=== PATIENT | male | born 1980 ===

== ENCOUNTER 2016-11-02 17:17 | Emergency (ER) | payer BC, OTHER ==
[2016-11-02 17:29] VITALS: BP 128/85
--- NOTE | 2016-11-02 18:03 | UC ---
Respiratory Complaint HPI - HPI Summary HPI Summary: The patient comes in today for: 1. Lung congestion: Onset: 11 days ago. Palliative/provocative: Nothing makes the cough better or worse except possibly cough medication. Quality: [place]: Lungs Severity: chest pain along the upper lateral right chest "where I broke a rib before." Time: cough lasts a few seconds. Associated symptoms: Previous treatment: He went to [facility] who diagnosed as having an upper respiratory infection and a viral "stomach bug." And he was given zithromax, and a "little white pill that dissolved in the mouth for nausea, and cough syrup with codiene. These helped, but he states that the lungs are still congested. The cough has continued. He has not had any continuing fevers. He got a nebulizer in the ER and it did help. But, he did not get an inhaler on discharge. Wheezing: "a little bit." Previous disease: No history of asthma. He has not used inhalers before. Dyspnea: "This cold has me huffing and puffing." Fatigue: "I feel tired." Rhinitis: Present, yellow. Cough: white, chunky by his description. * - History of Current Complaint Chief Complaint: UCGeneralIllness Stated Complaint: UPPER RESPIRATORY COMPLAINT Time Seen by Provider: 11/02/16 17:52 Hx Obtained From: Patient - Allergies/Home Medications Allergies/Adverse Reactions: Allergies Allergy/AdvReac Type Severity Reaction Status Date / Time Penicillins Allergy Unknown Verified 12/02/14 18:32 Reaction Details Home Medications: Home Medications Cyclosporine 0.05% OPHTH (NF) [Restasis 0.05% OPHTH] 1 drop BOTH EYES BID [History Confirmed 11/02/16] PMH/Surg Hx/FS Hx/Imm Hx Previously Healthy: No - "Chronic dry eyes and dysplasia." Endocrine History Of: Denies: Diabetes, Thyroid Disease, Hyperthyroidism, Hypothyroidism, Dyslipidemia Cardiovascular History Of: Denies: Cardiac Disorders, Hypertension, Pacemaker/ICD, Myocardial Infarction , Congestive Heart Failure, Atrial Fibrillation, Deep Vein Thrombosis, Bleeding Disorders Respiratory History Of: Denies: COPD, Asthma, Bronchitis, Pneumonia, Pulmonary Embolism GI/ History Of: Denies: Gastroesophageal Reflux, Ulcer, Gastrointestinal Bleed, Gall Bladder Disease, Kidney Stones, Diverticulitis, Renal Disease, Urosepsis Neurological History Of: Denies: TIA, CVA, Dementia, Seizures, Migraine Psychological History Of: Denies: Anxiety, Depression, Bipolar Disorder, Schizophrenia, Post Traumatic Stress Disorder Cancer History Of: Denies: Lung Cancer, Colorectal Cancer, Breast Cancer, Prostate Cancer, Cervical Cancer Other History Of: Negative For: HIV, Hepatitis B, Hepatitis C, Anticoagulant Therapy - Surgical History Surgical History: None - Family History Known Family History: Positive: Unknown - He is adopted. - Social History Occupation: Employed Full-time Alcohol Use: None Substance Use Type: None, Marijuana Smoking Status (MU): Heavy Every Day Tobacco Smoker Type: Cigars - He would inhaler smoking 5 cigars a day--but now he is down to only one. Amount Used/How Often: 1 cigarello a day Length of Time of Smoking/Using Tobacco: 19 Years Have You Smoked in the Last Year: Yes - Immunization History Most Recent Influenza Vaccination: Not the Season Review of Systems Constitutional: Negative Skin: Negative Eyes: Negative ENT: Negative Respiratory: Cough Cardiovascular: Chest Pain Gastrointestinal: Negative Genitourinary: Negative All Other Systems Reviewed And Are Negative: Yes Physical Exam Triage Information Reviewed: Yes Appearance: Well-Appearing, No Pain Distress, Thin Vital Signs: Initial Vital Signs Temp 98.3 F 11/02/16 17:21 Pulse 105 11/02/16 17:21 Resp 16 11/02/16 17:21 BP 128/85 11/02/16 17:21 Pulse Ox 97 11/02/16 17:21 Pulse: 80 when I took it during the exam. Vital Signs Reviewed: Yes Eyes: Positive: Conjunctiva Clear. Negative: Discharge ENT: Positive: Hearing grossly normal. Negative: Pharyngeal erythema, Nasal congestion, Nasal drainage, TM bulging, TM dull, TM red, Tonsillar swelling, Tonsillar exudate Dental: Positive: Gross Decay/Caries @, Dental Fracture @ Neck: Positive: Supple, Nontender, No Lymphadenopathy. Negative: Nuchal Rigidity Respiratory: Positive: Chest non-tender, No respiratory distress, No accessory muscle use, Wheezing, Other: - No intercostal retractions. Cardiovascular: Positive: RRR, No Murmur Abdomen Description: Positive: Nontender, No Organomegaly, Soft. Negative: Distended, Guarding Musculoskeletal: Positive: Strength Intact, ROM Intact, No Edema Neurological: Positive: Alert, Muscle Tone Normal Psychological: Positive: Age Appropriate Behavior, Consolable Skin: Negative: rashes, breakdown UC Diagnostic Evaluation - Laboratory O2 Sat by Pulse Oximetry: 97 - Radiology Xray Interpretation: No Acute Changes - CXR: no consolidation. Radiology Interpretation Completed By: Radiologist Re-Evaluation - Re-Evaluation First Eval Change: Improved - He thinks that the DuoNeb helped him. Lung ascultation revealed less wheezing. Respiratory Course/Dx - Differential Dx/Diagnosis Differential Diagnosis/HQI/PQRI: Asthma, Bronchitis, Laryngitis, Sinusitis Provider Diagnoses: Upper respiratory infection. Bronchospasm. Hyperactive airway disease Discharge - Discharge Plan Condition: Stable Disposition: HOME Patient Education Materials: Bronchospasm (ED) Referrals: No Primary Care Phys,NOPCP [Primary Care Provider] - 1 Week (Please see your primary care provider in about a week. If you don't have a primary care provider, please reference the included sheet of local provider. If you get worse, please be seen sooner.)
[2016-11-02] MEDS ORDERED: Albuterol 2.5 MG/3 ML NEB.SOL* (0.083%) INH ONE (18:12)
[2016-11-02] MEDS ORDERED: Ipratropium 0.5MG/2.5ML NEB* 0.5 MG/2.5 ML NEB.SOLN INH ONE (18:13)
--- NOTE | 2016-11-02 18:51 | RAD ---
INDICATION: Cough x10 days COMPARISON: None TECHNIQUE: PA and lateral views of the chest were obtained. FINDINGS: The heart and mediastinum are normal in size and contour. The lungs are grossly clear. There is no evidence of large pleural effusion. Visualized bones are normal for the patient's age. There is no radiographic evidence of free air beneath the diaphragm IMPRESSION: No radiographic evidence of acute cardiopulmonary disease.
== END 2016-11-02 19:13 | disposition home or self-care (01) ==
LOC: UCCORT 17:17
DX: J06.9 Acute upper respiratory infection, unspecified (principal); J45.909 Unspecified asthma, uncomplicated; Z88.0 Allergy status to penicillin; F17.210 Nicotine dependence, cigarettes, uncomplicated
CPT/HCPCS: 71020; 87651; 99212; G0463; J7644

== ENCOUNTER 2019-10-31 12:48 | Emergency (ER) | payer BC ==
[2019-10-31 12:57] VITALS: BP 119/54
--- NOTE | 2019-10-31 13:15 | UC ---
UC General HPI - HPI Summary HPI Summary: 39-year-old male comes in with a chief complaint of pain in right upper thoracic area. Patient woke up and he was stretching felt a pop in the thoracic back area just medial to the right scapula. Pain is worse with movement of the arm and neck and with deep inspiration. Does not feel short of breath at rest. No weakness or numbness. - History of Current Complaint Chief Complaint: UCUpperExtremity Stated Complaint: RT SHOULDER/NECK PAIN Time Seen by Provider: 10/31/19 13:01 Pain Intensity: 8 - Allergy/Home Medications Allergies/Adverse Reactions: Allergies Allergy/AdvReac Type Severity Reaction Status Date / Time Penicillins Allergy Unknown Verified 10/31/19 12:57 Reaction Details Home Medications: Home Medications Cyclobenzaprine TAB* [Flexeril 10 MG TAB*] 10 mg PO TID PRN #15 tab MDD 3 [Rx] PMH/Surg Hx/FS Hx/Imm Hx Previously Healthy: Yes Other History Of: Negative For: HIV, Hepatitis B, Hepatitis C, Anticoagulant Therapy - Surgical History Surgical History: None - Family History Known Family History: Positive: Unknown - He is adopted. - Social History Alcohol Use: None Substance Use Type: Marijuana Smoking Status (MU): Heavy Every Day Tobacco Smoker Type: Cigars Amount Used/How Often: 5 cigarello a day Length of Time of Smoking/Using Tobacco: 19 Years Have You Smoked in the Last Year: Yes - Immunization History Most Recent Influenza Vaccination: Not the Season Review of Systems All Other Systems Reviewed And Are Negative: Yes Constitutional: Positive: Negative Skin: Positive: Negative Eyes: Positive: Negative ENT: Positive: Negative Respiratory: Positive: Other - see hpi Cardiovascular: Positive: Other - see hpi Gastrointestinal: Positive: Negative Motor: Positive: Other - see hpi Neurovascular: Positive: Negative Musculoskeletal: Positive: Other: - see hpi Neurological/Mental Status: Positive: Negative Psychological: Positive: Negative Is Patient Immunocompromised?: No Physical Exam Triage Information Reviewed: Yes Appearance: Well-Appearing, Well-Nourished, Pain Distress - mild with exam and rom Vital Signs: Initial Vital Signs Temp 98.4 F 10/31/19 12:51 Pulse 95 10/31/19 12:51 Resp 16 10/31/19 12:51 BP 119/54 10/31/19 12:51 Pulse Ox 99 10/31/19 12:51 Vital Signs Reviewed: Yes Eye Exam: Normal Eyes: Positive: Conjunctiva Clear Neck: Positive: Other: - Tenderness to palpation to the superior portion of the medial aspect of the right scapula. No tenderness on the spinous processes of the neck or upper thoracic area. Respiratory: Positive: Lungs clear, Normal breath sounds, No respiratory distress Cardiovascular: Positive: RRR Musculoskeletal: Positive: Other: - Patient is tender to palpation in the superior aspect of the medial scapula on the right. Nontender in the midline of the spine. Normal radial pulses bilaterally normal sensation and strength range of motion the fingers wrist elbows. Right shoulder movement increases the pain. Neurological: Positive: Alert Psychological: Positive: Age Appropriate Behavior Skin Exam: Normal Course/Dx - Course Course Of Treatment: Automobile Washer Steam: Fito Morgan ([id number]) Eye Glass Frame Polisher: ADRIÁN (NUANCE) Report Date: 10/31/2019 13:26:00 Report Status: Final Start of Report Content Patient Name: MELISSA ABDI Medical Record#: [id number] Ordering Physician: Elton Cano MD Acct.#: [id number] : 01/1980 Age: 39 Sex: M Location: [facility] Exam Date: 10/31/19 1310 ADM Status: PRE ER Order Information: SCAPULA RIGHT Accession Number: [id number] CPT: 78676 INDICATION: Right scapular pain. TECHNIQUE: 3 views of the right scapula were obtained. FINDINGS: The soft tissues are unremarkable. The bone mineralization is within normal limits. No fracture is identified. Anatomic alignment is maintained. The joint spaces are preserved. IMPRESSION: NO FRACTURE IDENTIFIED ___ <Electronically signed by Fito Morgan MD in OV> 10/31/191322 Dictated By: Fito Morgan MD Dictated Date/Time: 10/31/19 132 Transcribed Date/Time: 1321 Copy to: CC:No Primary Care Phys,NOPCP ; Elton Cano MD Imaging - [facility] Imaging [facility] Imaging [facility] Urgent [facility] [address] [place] [address] ph ([phone]) ph ([phone]) ph ([phone]) End of Report Content ========= Automobile Washer Steam: Fito Morgan, ([id number]) Eye Glass Frame Polisher: ADRIÁN, (NUANCE) Report Date: 10/31/2019 13:25:00 Report Status: Final Start of Report Content Patient Name: MELISSA ABDI Medical Record#: [id number] Ordering Physician: Elton Cano MD Acct.#: [id number] : 01/1980 Age: 39 Sex: M Location: [facility] [place] Exam Date: 10/31/19 130 ADM Status: PRE ER Order Information: CHEST PA LAT 2 VWS Accession Number: [id number] CPT: 99233 INDICATION: Right chest pain COMPARISON: November 02 2016 chest radiograph TECHNIQUE: Dual-energy PA and lateral views of the chest were obtained. FINDINGS: The lungs are clear. There is no pleural effusion or pneumothorax. The cardiomediastinal silhouette is within normal limits. The upper abdominal contents are normal. Osseous structures are unremarkable. IMPRESSION: No acute cardiopulmonary process by radiograph <Electronically signed by Fito Morgan MD in OV> 10/31/19 1322 Dictated By: Fito Morgan MD Dictated Date/Time: 132 Transcribed Date/Time: 10/31/191320 Copy to: CC:No Primary Care Phys, NOPCP ; Elton Cano MD Imaging - [facility] Imaging - [place] Urgent [facility] [address] [address] ph ([phone]) ph ([phone]) ph ([phone]) ==== End of Report Content I discussed the x-rays with the patient. Patient is no neurologic deficit on examination today. Injury appears to be a strain of the right trapezius muscle. I recommended anti-inflammatories and applying cold to the area. Also Flexeril as needed. Patient placed in a sling by nursing patient neurovascular intact after placement of the sling. We discussed range of motion exercises and I emphasized taking the sling off multiple times a day to keep the range of motion. Follow-up with sports medicine or orthopedics. Get reevaluated sooner if worse or any questions or concerns. - Diagnoses Provider Diagnosis: Right-sided thoracic back pain Discharge ED - Sign-Out/Discharge Documenting (check all that apply): Patient Departure All imaging exams completed and their final reports reviewed: Yes - Discharge Plan Condition: Stable Disposition: HOME Prescriptions: Cyclobenzaprine TAB* [Flexeril 10 MG TAB*] 10 mg PO TID PRN #15 tab MDD 3 PRN Reason: Pain - Moderate Patient Education Materials: Shoulder Sprain (ED), Thoracic Back Strain (ED) Referrals: [facility] [Provider Group] Holden Saravia MD [Medical Doctor] - Additional Instructions: FOLLOW UP WITH SPORTS MEDICINE OR ORTHOPEDICS IF NOT COMPLETELY IMPROVED. GET REEVALUATED SOONER IF NOT IMPROVED OR WORSE; PAIN, WEAKNESS, NUMBNESS, SHORTNESS OF BREATH, YOU FEEL ILL OR ANY QUESTIONS OR CONCERNS. - Billing Disposition and Condition Condition: STABLE Disposition: Home
[2019-10-31] MEDS ORDERED: Ibuprofen TAB* 600 MG PO ONE (13:48)
== END 2019-10-31 14:07 | disposition home or self-care (01) ==
LOC: UCCORT 12:48
DX: M54.6 Pain in thoracic spine (principal); F17.290 Nicotine dependence, other tobacco product, uncomplicated; Z88.0 Allergy status to penicillin
CPT/HCPCS: 71046; 99213; A9270-GY; G0463